=== PATIENT | female | born 1960 | race African-American/Black ===

== ENCOUNTER → 2020-07-23 | Day surgery (SDC) | payer OTHER | END | disposition home or self-care (01) | LOC: JRADIR 09:45 | PROVIDERS: ATTEND Internal Medicine | PROC: 0G9G3ZX Drainage of Left Thyroid Gland Lobe, Percutaneous Approach, Diagnostic (ICD-10-PCS; principal; 2020-07-23) | DX: E04.1 Nontoxic single thyroid nodule (principal) | CPT/HCPCS: 76942; 88173; 88305-TC ==